=== PATIENT | male | born 1985 | race Two or more races ===

== ENCOUNTER 2017-04-13 23:56 | Emergency (ER) | payer OTHER ==
[~2017-04-13] VITALS: Ht 175.3 cm; Wt 76.2 kg
[2017-04-14 02:21] LABS: MONOTEST NEGATIVE (NEGATIVE)
[2017-04-14 02:46] VITALS: BP 131/76
== END 2017-04-14 02:47 | disposition home or self-care (01) ==
LOC: ER 04-14 00:08
DX: F41.9 Anxiety disorder, unspecified (principal); J45.909 Unspecified asthma, uncomplicated
CPT/HCPCS: 36415; 86308; 93005; 99283; A4606; Z7610

== ENCOUNTER 2021-02-13 13:10 | Emergency (ER) | payer OTHER ==
[~2021-02-13] VITALS: Ht 175.3 cm; Wt 54.4 kg
--- NOTE | 2021-02-13 13:15 | NUR ---
DR. MUNOZ AT FOR EVAL.
[2021-02-13] MEDS ORDERED: ONDANSETRON HCL/PF 4 MG/2 ML VIAL IVP ONE (13:30)
[2021-02-13] MEDS ORDERED: HYDROMORPHONE 1 MG/1 ML DISP.SYRIN IV ONE ×2 (13:30→16:30)
[2021-02-13] MEDS ORDERED: ONDANSETRON HCL/PF 4 MG/2 ML VIAL ONE (13:31)
[2021-02-13] MEDS ORDERED: HYDROMORPHONE 1 MG/1 ML DISP.SYRIN ONE ×2 (13:31→16:09)
[2021-02-13] MEDS ORDERED: IV NS 0.9% 250 ML IV ONE (13:35)
[2021-02-13] MEDS ORDERED: IOHEXOL-350 100 ML VIAL IV ONE (13:35)
--- NOTE | 2021-02-13 13:53 | NUR ---
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 PT AAOX3, RR EVEN & UNLABORED. DENIES CP, DIZZINESS, N/V AT THIS TIME. PLACED ON REFRIGERATION SYSTEM INSTALLER, ST. MEDICATED ORDERED, PT DELMY WELL. WILL CONT TO MONITOR.
[2021-02-13 16:15] VITALS: BP 117/67
--- NOTE | 2021-02-13 16:17 | NUR ---
MEDICATED PER ERMD ORDER, PT DELMY WELL.
--- NOTE | 2021-02-13 16:45 | NUR ---
PT SIGNED AMA FORM. DR. MELENDEZ DISCUSSED RISK TO PT ABOUT LEAVING AMA. PT UNDERSTOOD WITH VERBAL UNDERSTANDING. IV removed. Catheter intact and site benign. Pressure and 4x4 applied to site. No bleeding noted.
== END 2021-02-13 16:48 | disposition left against medical advice (07) ==
LOC: ER 13:19
DX: R06.00 Dyspnea, unspecified (principal); R94.31 Abnormal electrocardiogram [ECG] [EKG]; C95.90 Leukemia, unspecified not having achieved remission; J45.909 Unspecified asthma, uncomplicated
CPT/HCPCS: 93005; 96374; 96375; 96376; 99284; J1170 ×2; J2405; J7050; Q9967

== ENCOUNTER 2021-04-19 00:51 | Inpatient (IN) | payer OTHER ==
[2021-04-19] VITALS (70 sets, daily range): BP systolic 77–126; BP diastolic 33–86
[~2021-04-19] VITALS: Ht 170.2 cm; Wt 45.4 kg
--- NOTE | 2021-04-19 01:02 | NUR ---
YURIY FROM HOME C/O SOB SPO2 80'S-LOW 90'S AT HOME, NOW ON NON REBREATHER 15L SATTING 100%. PT HAS NOT BEEN EATING, BS 50 EMS GIVEN 250ML D10. PATIENT ALERT AND ORIENTED X3. NON AMBULATORY PLACED IN BED 08 ON MONITOR AND POX/
[2021-04-19] MEDS ORDERED: LEVOFLOXACIN 250 MG /D5W 50 ML 0 ML IV ONE (01:18)
[2021-04-19] MEDS ORDERED: LEVOFLOXACIN 750 MG /D5W 150ML 150 ML IV ONE ×2 (01:20→01:30)
[2021-04-19] MEDS ORDERED: IV D5/ 0.9% NACL 1,000 ML IV ONE (01:30)
[2021-04-19] MEDS ORDERED: LIDOCAINE 2% JEL UROJET 10 ML MM ONE (01:37)
[2021-04-19 01:40] LABS: ABG BASE EXCESS -1.5 mmol/L; ABG PCO2 58.4 mmHg (35.0-45.0); ABG PH 7.272 (7.350-7.450); ABG PO2 67.7 mmHg (75.0-100.0); COHb 0.5 % (0.5-1.5); MetHb 0.2 % (0.0-1.5); O2Hb 89.3 % (94.0-97.0); SITE, ABG Left Brachial; VENT MODE, BG NRB 15L
--- NOTE | 2021-04-19 01:49 | NUR ---
[facility]
[2021-04-19] MEDS ORDERED: PROPOFOL 100 ML ONE (01:53)
--- NOTE | 2021-04-19 01:54 | NUR ---
RECIEVED ROOM 254
--- NOTE | 2021-04-19 01:56 | NUR ---
RT Notes Pt orally intubated by Josef ROSALES with 7.0 ETT secured at 23cm at the lip line. Color change on Co2 detector noted. Mist in tube noted. Equal chest rise noted. Pt placed on [facility] vent per MD on ordered settings AC mode, rate 16 , VT 400, 100%, +5. BIOMETRICS INSTRUCTOR done. Alarms set and audible. Ambu bag at bedside. Vent plugged into red outlet. Will obtain ABG 30 minutes after intubation. Will cont to monitor. Addendum: 04/19/21 at 0316 by ONOFRE HARRINGTON RT Amended: Links added.
[2021-04-19] MEDS ORDERED: PROPOFOL 100 ML IV ONE (02:00)
[2021-04-19] MEDS ORDERED: SUCCINYLCHOLINE CHLORIDE 20 MG/ML VIAL IV ONE (02:00)
[2021-04-19] MEDS ORDERED: ETOMIDATE 2 MG/ML VIAL IV ONE ×2 (02:00→08:23)
--- NOTE | 2021-04-19 02:15 | NUR ---
[facility]SA SWAB COLLECTED AND SENT TO LAB. PATIENT'S BELONGINGS LIST DONE.
--- NOTE | 2021-04-19 02:25 | NUR ---
Carlos hawk in [facility] - 04/19/21 at 0229 by [facility] [phone]
--- NOTE | 2021-04-19 02:29 | NUR ---
CASTRO CATHETER PLACED, NO URINE OUTPUT AT THE MOMENT
--- NOTE | 2021-04-19 02:29 | NUR ---
ER WOUND CARE PHYSICIAN @ BEDSIDE
--- NOTE | 2021-04-19 02:39 | NUR ---
COVID SWAB DONE AND SENT TO LAB
--- NOTE | 2021-04-19 02:50 | NUR ---
PT WITH SUB Q DILAUDID DRIP ON A PUMP. THE PUMP IS STOPED AND PT WAS STARTED ON PROPOPHOL DRIP ORDERED.
[2021-04-19 02:52] LABS: BASOPHILS % (AUTO) 0.1 % (0.0-2.0); EOSINOPHILS % (AUTO) 0.3 % (0.0-6.0); HEMATOCRIT 36 % (39-51); HEMOGLOBIN 11.3 g/dL (13.5-17.5); LYMPHOCYTES # (AUTO) 0.3 K/uL (0.8-4.8); LYMPHOCYTES % (AUTO) 2.3 % (20.0-44.0); MEAN CORPUSCULAR HGB CONC 32 g/dl (31.0-36.0); MEAN CORPUSCULAR VOLUME 71 fL (80-96); MONOCYTES # (AUTO) 0.6 K/uL (0.1-1.30); MONOCYTES % (AUTO) 4.2 % (2.0-12.0); NEUTROPHILS # (AUTO) 13.4 K/uL (1.8-8.9); NEUTROPHILS % (AUTO) 93.1 % (43.0-81.0); PLATELET COUNT (AUTO) 175 K/uL (150-450); RED BLOOD CELL COUNT(AUTO) 5.05 MIL/uL (4.5-6.0); WHITE BLOOD COUNT (AUTO) 14.4 K/uL (4.3-11.0)
[2021-04-19] MEDS ORDERED: AZITHROMYCIN 500 MG VIAL ONE (02:53)
[2021-04-19 02:56] LABS: ABG BASE EXCESS -2.5 mmol/L; ABG PCO2 52.4 mmHg (35.0-45.0); ABG PH 7.288 (7.350-7.450); ABG PO2 224.1 mmHg (75.0-100.0); COHb 0.1 % (0.5-1.5); MetHb 0.2 % (0.0-1.5); O2Hb 99.1 % (94.0-97.0); SITE, ABG Left Brachial
[2021-04-19] MEDS ORDERED: AZITHROMYCIN 500 MG in IV D5W 250 ML IV ONE (03:00)
--- NOTE | 2021-04-19 03:01 | NUR ---
Vent setting changed per MD order post ABG result: RR 22 FIo2 80% Addendum: 04/19/21 at 0318 by ONOFRE HARRINGTON RT Amended: Links added.
[2021-04-19 03:29] LABS: ALANINE AMINOTRANSFERASE 276 U/L (12-78); ALBUMIN 1.7 g/dL (3.4-5.0); ALKALINE PHOSPHATASE 376 U/L (46-116); ASPARTATE AMINOTRANSFERASE 328 U/L (15-37); BILIRUBIN,DIRECT 0.5 mg/dL (0.0-0.2); BILIRUBIN,TOTAL 1.1 mg/dL (0.2-1.0); CALCIUM, SERUM 7.2 mg/dL (8.5-10.1); CARBON DIOXIDE 26 mmol/L (21-32); CHLORIDE 100 mmol/L (98-107); CREATININE 1.2 mg/dL (0.6-1.3); GLUCOSE 162 mg/dL (74-106); POTASSIUM 4.7 mmol/L (3.5-5.1); SODIUM SERUM 132 mmol/L (136-145); TOTAL PROTEIN, SERUM 4.2 g/dL (6.4-8.2)
[2021-04-19 03:31] LABS: UREA NITROGEN, BLOOD 100 mg/dL (7-18)
--- NOTE | 2021-04-19 03:33 | NUR ---
CALLED [facility] FOR IMAGING READ
[2021-04-19] MEDS ORDERED: CT SWABBABLE VALVE TRANS SET 1 EA INFUS.SET MC ONE (04:08)
[2021-04-19] MEDS ORDERED: IV NS 0.9% 250 ML IV ONE (04:08)
[2021-04-19] MEDS ORDERED: IOHEXOL-350 100 ML VIAL IV ONE (04:08)
--- NOTE | 2021-04-19 04:19 | NUR ---
PATIENT WENT TO CT WITH RT AND RN AT BEDSIDE
--- NOTE | 2021-04-19 04:31 | NUR ---
REPORT GIVEN TO HÉCTOR JACINTO
[2021-04-19] MEDS ORDERED: METH10TA2 PO (04:42)
[2021-04-19] MEDS ORDERED: PREG150C93 PO (04:44)
[2021-04-19] MEDS ORDERED: ESCI10TA PO (04:44)
[2021-04-19] MEDS ORDERED: Z GUARD REMEDY 4 OZ OINT TP PRN (05:00)
[2021-04-19] MEDS ORDERED: ACETAMINOPHEN 650 MG/SUPP.RECT RC PRN (05:00)
[2021-04-19] MEDS ORDERED: HYDROCODONE/APAP 5/325MG TABLET GT PRN (05:00)
[2021-04-19] MEDS ORDERED: MORPHINE SULFATE INJ 2 MG/ML DISP.SYRIN IV PRN (05:00)
[2021-04-19] MEDS ORDERED: ONDANSETRON HCL/PF 4 MG/2 ML VIAL IVP PRN (05:00)
[2021-04-19] MEDS ORDERED: IV NS 0.9% 1,000 ML IV PRN ×2 (05:00→10:18)
[2021-04-19 05:18] LABS: ABG BASE EXCESS -1.1 mmol/L; ABG PCO2 36.6 mmHg (35.0-45.0); ABG PH 7.418 (7.350-7.450); ABG PO2 56.4 mmHg (75.0-100.0); COHb 0.3 % (0.5-1.5); MetHb 0.4 % (0.0-1.5); O2Hb 88.6 % (94.0-97.0); SITE, ABG Left Brachial
--- NOTE | 2021-04-19 05:20 | NUR ---
FIO2 increase to 100% per MD Josef order post ABG results Addendum: 04/19/21 at 0550 by ONOFRE HARRINGTON RT Amended: Links added.
[2021-04-19] MEDS ORDERED: ALBUTEROL FS 2.5 MG/3 ML VIAL.NEB NEB PRN (05:30)
--- NOTE | 2021-04-19 05:37 | NUR ---
TRANSFERRED TO ICU UNDER ACLS
--- NOTE | 2021-04-19 05:40 | NUR ---
NAILING MACHINE OPERATOR AUTOMATIC NOTES PT ADMITTED FROM ER, DX IS ACUTE HYPOXIC RESPIRATORY FAILURE, WITH HISTORY OF ASTHMA AND VASCULAR CANCER STAGE 4 . NO KNOWN ALLERGIES. SEDATED. PT ON ETT- 7.5, MECHANICAL VENTILATION WITH SETTINGS AC-22, TV-400, FIO2-100%, PEEP-5. PT HAS NG TUBE INSERTED TO LEFT NARES AND CASTRO CATH. IV ACCESS AT LAC #20, LEFT WRIST #22, RIGHT FOREARM #18, PATENT INTACT FLUSHED WITH NS. RUNNING WITH PROPOFOL @ 15 MCG/KG/MIN. AND NS 1L @ 125 ML/HR. ACCUCHECK Q6H. ALL SAFETY MEASURES IN PLACE, BED IN LOWEST LOCKED POSITION, CALL LIGHT WITHIN REACH.
--- NOTE | 2021-04-19 05:51 | NUR ---
patient transferred to icu per acls with rt rn and emt.
[2021-04-19] MEDS: PROPOFOL 100 ML IV PRN ×2 (06:02→15:51)
[2021-04-19] MEDS: BLOOD SUGAR DIAGNOSTIC 1 EACH STRIP IN SCH ×3 (06:33→18:26)
[2021-04-19 06:58] LABS: IRON, SERUM 88 ug/dl (50-175); TOTAL IRON BINDING CAPACITY 347 ug/dl (250-450)
[2021-04-19] MEDS: NOREPINEPHRINE 8 MG in IV NS 0.9% 242 ML IV PRN ×2 (07:33→18:45)
--- NOTE | 2021-04-19 07:40 | NUR ---
ICU/RN PT IS INTUBATED ON THE VENT AC MODE,FIO2-100%,PEEP-5,SAT O2-100%.BP LOW LEVOPHED STARTED.SEDATED WITH DIPRIVAN IV INFUSING ORDERED.LEFT NG TUBE CLAMPED.F/C IN PLACE DRAINING WITH YELLOW URINE.ABDOMEN DISTENDED.BOWEL SOUNDS PRESENT.LABS REVIEW. NOTIFIED.
[2021-04-19] MEDS: PANTOPRAZOLE 40 MG VIAL IV SCH (08:25)
[2021-04-19] MEDS: ENOXAPARIN SODIUM 40 MG/0.4 ML DISP.SYRIN SQ SCH (08:26)
[2021-04-19] MEDS: CEFEPIME 2 GM in IV D5W 100 ML IV SCH ×2 (08:36→20:15)
[2021-04-19] MEDS ORDERED: CEFEPIME 1 GM in IV D5W 50 ML IV SCH (09:00)
--- NOTE | 2021-04-19 09:00 | NUR ---
ICU/RN DUE MEDS ARE GIVEN ORDERED.ABG DONE.PEEP INCREASED TO 10.
--- NOTE | 2021-04-19 09:09 | NUR ---
WOUND CARE CONSULT: REVIEWED CHART, NURSING DOCUMENTATION AND PHOTO WHICH INDICATES CACHEXIA AND SACRAL DEEP TISSUE INJURY, PRESENT ON ADMISSION. RECOMMENDATIONS MADE FOR SKIN PROTECTION. DISCUSSED WITH NURSING STAFF. PT IS ON FULSHEAR ISOFLEX LOW AIRLOSS BED. MD IN AGREEMENT WITH PLAN OF CARE. DIETARY CONSULT IN PLACE.
--- NOTE | 2021-04-19 11:00 | NUR ---
ICU/RN RIGHT PICC LINE INSERTED.SMALL BLEEDING ON THE DRESSING SIDE NOTED.
--- NOTE | 2021-04-19 11:34 | NUR ---
ICU/RN PT C/O OF PAIN MORPHINE IV GIVEN ORDERED. DIPRIVAN INCREASED.
[2021-04-19] MEDS: INSULIN REGULAR, HUMAN 100 UNIT/ML 3 ML VIAL SQ PRN (11:46)
[2021-04-19 15:05] LABS: THYROID STIMULATING HORMONE 16.245 uIU/mL (0.358-3.74)
[2021-04-19 16:35] LABS: BAND % (MANUAL) 6 % (0.0-5.0); LYMPHOCYTES % (MANUAL) 7 % (16-48); METAMYELOCYTES % 1 % (0-0); MONOCYTES % (MANUAL) 7 % (0-11.0); NEUTROPHILS % (MANUAL) 78 (42-76); REACTIVE LYMPHOCYTES 1 % (0-0)
--- NOTE | 2021-04-19 17:00 | NUR ---
ICU/RN DUE MEDS ARE GIVEN ORDERED.PM CARE PROVIDED.WOUND DRESSING DONE ORDERED.PT IS SEDATED WITH DIPRIVAN.ON LEVOPHED DRIP AND IV FLUIDS.REPOSITION FOR COMFORT.
--- NOTE | 2021-04-19 18:05 | NUR ---
ICU/RN BS-51. D50% IV GIVEN ORDERED.CONTINUE MONITORING.FAMILY AT BEDSIDE.
[2021-04-19] MEDS: DEXTROSE 50%-WATER 50 ML DISP.SYRIN IV PRN (18:26)
--- NOTE | 2021-04-19 19:10 | NUR ---
RECEIVED PT ON BED ORALLY INTUBATED , SETTING PER MD, FIO2 60% PEEP 10, SPO2 97% TELE MONITOR READS SINUS RHYTHM 60'S PT HAVE KIMBERLY PICC WITH ONGOING LEVOPHED @ 0.3 MCG/KG/MIN WILL TITRATE PER PROTOCOL,PROPOFOL@ 30 MCG/KG/MIN, AND NS @75ML/HR HAVE RHAND#18 PATENT AND FLUSHED HAVE CASTRO IN PLACE WITH YELLOW URINE DRAINING VIA GRAVITY VERY LOW URINE OUTPUT,LNGTUBE ON PLACED CLAMPED BED ON LOWEST POSITION AND LOCKED SIDERAILS UP X 2 WILL CONT TO MONITOR
[2021-04-19] MEDS ORDERED: HYDROMORPHONE 1 MG/1 ML DISP.SYRIN IV PRN (20:00)
[2021-04-19] MEDS ORDERED: DOXYCYCLINE 100 MG VIAL ONE (22:27)
[2021-04-19] MEDS: DOXYCYCLINE 100 MG in IV D5W 100 ML IV SCH (22:36)
[2021-04-20] VITALS (96 sets, daily range): BP systolic 57–137; BP diastolic 34–91
[2021-04-20] MEDS: INSULIN REGULAR, HUMAN 100 UNIT/ML 3 ML VIAL SQ PRN ×2 (00:01→05:42)
[2021-04-20 01:38] LABS: BILIRUBIN,URINE NEGATIVE (NEGATIVE); COLOR,URINE YELLOW (YELLOW); LEUKOCYTE ESTERASE ,URINE NEGATIVE (NEGATIVE); NITRITE, URINE NEGATIVE (NEGATIVE); PROTEIN,URINE NEGATIVE (NEGATIVE); UGLUCOSE NEGATIVE (NEGATIVE); UROBILINOGEN,URINE 0.2 EU/dL (0.2)
[2021-04-20] MEDS: POLYVINYL ALCOHOL 15 ML BOTTLE EACHEYE PRN ×2 (01:50→20:38)
[2021-04-20] MEDS: PROPOFOL 100 ML IV PRN ×2 (02:04→14:57)
[2021-04-20 02:47] LABS: RBC,URINE 21-50 /HPF (0-2)
[2021-04-20 02:48] LABS: BACTERIA,URINE Few /HPF (None Seen); SQUAMOUS EPITHELIAL CELL,UR Few /HPF (None Seen)
[2021-04-20] MEDS: NOREPINEPHRINE 8 MG in IV NS 0.9% 242 ML IV PRN ×3 (04:05→19:30)
[2021-04-20 04:26] LABS: BASOPHILS % (AUTO) 0.1 % (0.0-2.0); EOSINOPHILS % (AUTO) 0.1 % (0.0-6.0); HEMATOCRIT 38 % (39-51); HEMOGLOBIN 12.1 g/dL (13.5-17.5); LYMPHOCYTES # (AUTO) 0.3 K/uL (0.8-4.8); LYMPHOCYTES % (AUTO) 1.7 % (20.0-44.0); MEAN CORPUSCULAR HGB CONC 32 g/dl (31.0-36.0); MEAN CORPUSCULAR VOLUME 71 fL (80-96); MONOCYTES # (AUTO) 0.6 K/uL (0.1-1.30); MONOCYTES % (AUTO) 3.1 % (2.0-12.0); NEUTROPHILS # (AUTO) 18.4 K/uL (1.8-8.9); PLATELET COUNT (AUTO) 136 K/uL (150-450); RED BLOOD CELL COUNT(AUTO) 5.38 MIL/uL (4.5-6.0); WHITE BLOOD COUNT (AUTO) 19.3 K/uL (4.3-11.0)
[2021-04-20 04:38] LABS: CREATININE 1.7 mg/dL (0.6-1.3); MAGNESIUM 2.2 mg/dL (1.8-2.4); PHOSPHORUS 5.6 mg/dL (2.5-4.9); POTASSIUM 4.4 mmol/L (3.5-5.1)
--- NOTE | 2021-04-20 05:32 | NUR ---
REPORTED TO HOSPITALIST ONCKIM JANG THAT PT BLOOD SUGAR IS 35, AND I GIVE THE D50 AMP IV PER PROTOCOL, SHE MADE ANOTHER ORDER TO CHANGE THE IVF TO D5W @ 75ML/HR NOTED AND CARRIED OUT
[2021-04-20] MEDS: DEXTROSE 50%-WATER 50 ML DISP.SYRIN IV PRN (05:41)
[2021-04-20] MEDS: BLOOD SUGAR DIAGNOSTIC 1 EACH STRIP IN SCH ×4 (05:41→18:19)
[2021-04-20 05:42] LABS: BAND % (MANUAL) 8 % (0.0-5.0); LYMPHOCYTES % (MANUAL) 2 % (16-48); MONOCYTES % (MANUAL) 2 % (0-11.0); NEUTROPHILS % (MANUAL) 88 (42-76)
[2021-04-20] MEDS: IV D5W 1,000 ML IV PRN ×2 (06:13→19:16)
--- NOTE | 2021-04-20 06:22 | NUR ---
BLOOD SUGAR RECHECKED 119
--- NOTE | 2021-04-20 07:30 | NUR ---
RN NOTES PT FOUND SEMI FOWLERS DISPLAYING NO S/S OF DISTRESS, FLACC = 0, RIKERS = 3, BILATERAL RISE AND FALL THE CHEST OBSERVED. R UA PICC IS PATIENT AND INTACT. CASTRO CATH IS BELOW PATIENT DRAINING BY GRAVITY. S1S2 NOTED. VSS, RN WILL MONITOR AND TREAT THROUGHOUT SHIFT. SAFETY MEASURES IN PLACE, BED LOCKED AND IN LOWEST POSITION, SIDE RAILS UPX2, CALL LIGHT WITHIN REACH, BED ALARM ARMED.
[2021-04-20 08:49] LABS: ABG BASE EXCESS -6.5 mmol/L; ABG OXYGEN SATURATION 98.7 % (92.0-98.5); ABG PCO2 34.1 mmHg (35.0-45.0); ABG PH 7.346 (7.350-7.450); ABG PO2 144.1 mmHg (75.0-100.0); AaDO2 246.2 mmHg; COHb 0.6 % (0.5-1.5); MetHb 0.2 % (0.0-1.5); O2Hb 97.9 % (94.0-97.0); PEEP,BG 10 cm H2O; SITE, ABG Left Radial; VENT MODE, BG AC 22 400 60% +10; VT, ABG 400 mL
[2021-04-20] MEDS: CEFEPIME 2 GM in IV D5W 100 ML IV SCH ×2 (09:19→20:02)
[2021-04-20] MEDS: PANTOPRAZOLE 40 MG VIAL IV SCH (09:19)
[2021-04-20] MEDS: DOXYCYCLINE 100 MG in IV D5W 100 ML IV SCH ×2 (09:19→20:48)
[2021-04-20] MEDS: ENOXAPARIN SODIUM 40 MG/0.4 ML DISP.SYRIN SQ SCH (09:20)
--- NOTE | 2021-04-20 12:00 | NUR ---
RN NOTE PT TEMP IS 94.7 F, RN PLACED ELIJAH HUGGER BLANKET ON PT.
[2021-04-20 13:10] LABS: D-DIMER 1.18 mg/L(FEU (0.17-0.50)
--- NOTE | 2021-04-20 19:05 | NUR ---
RECEIVED PT ON BED ORALLY INTUBATED , SETTING PER MD, FIO2 60% PEEP 5, SPO2 97% TELE MONITOR READS SINUS TACHY 100'S PT HAVE KIMBERLY PICC WITH ONGOING LEVOPHED @ 0.4 MCG/KG/MIN WILL TITRATE PER PROTOCOL,PROPOFOL@ 30 MCG/KG/MIN, AND D5W @75ML/HR HAVE RHAND#18 PATENT AND FLUSHED HAVE CASTRO IN PLACE WNO URINE OUTPUT THIS TIME ,LNGTUBE ON PLACED CLAMPED BED ON LOWEST POSITION AND LOCKED SIDERAILS UP X 2 WILL CONT TO MONITOR
--- NOTE | 2021-04-20 19:10 | NUR ---
RN NOTES PT FOUND SEMI FOWLERS DISPLAYING NO S/S OF DISTRESS, FLACC = 0, RIKERS = 3, BILATERAL RISE AND FALL THE CHEST OBSERVED. R UA PICC IS PATIENT AND INTACT. CASTRO CATH IS BELOW PATIENT DRAINING BY GRAVITY. S1S2 NOTED. SBAR AND REPORT GIVEN TO COMPUTER NETWORKING INSTRUCTOR RN, ALL QUESTIONS ANSWERED. SAFETY MEASURES IN PLACE, BED LOCKED AND IN LOWEST POSITION, SIDE RAILS UPX2, CALL LIGHT WITHIN REACH, BED ALARM ARMED. PT ENDORSED TO COMPUTER NETWORKING INSTRUCTOR FOR TIERRA.
[2021-04-21] VITALS (86 sets, daily range): BP systolic 78–129; BP diastolic 50–76
[2021-04-21] MEDS: BLOOD SUGAR DIAGNOSTIC 1 EACH STRIP IN SCH ×5 (00:02→23:16)
[2021-04-21] MEDS: INSULIN REGULAR, HUMAN 100 UNIT/ML 3 ML VIAL SQ PRN ×3 (00:03→23:18)
[2021-04-21] MEDS: PROPOFOL 100 ML IV PRN ×2 (01:48→12:31)
[2021-04-21] MEDS: NOREPINEPHRINE 8 MG in IV NS 0.9% 242 ML IV PRN ×5 (01:48→22:31)
[2021-04-21 04:22] LABS: BASOPHILS % (AUTO) 0.1 % (0.0-2.0); EOSINOPHILS % (AUTO) 0.1 % (0.0-6.0); HEMATOCRIT 38 % (39-51); HEMOGLOBIN 11.9 g/dL (13.5-17.5); LYMPHOCYTES # (AUTO) 0.3 K/uL (0.8-4.8); LYMPHOCYTES % (AUTO) 1.7 % (20.0-44.0); MEAN CORPUSCULAR HGB CONC 32 g/dl (31.0-36.0); MEAN CORPUSCULAR VOLUME 71 fL (80-96); MONOCYTES # (AUTO) 0.8 K/uL (0.1-1.30); MONOCYTES % (AUTO) 4.7 % (2.0-12.0); NEUTROPHILS # (AUTO) 15.3 K/uL (1.8-8.9); NEUTROPHILS % (AUTO) 93.4 % (43.0-81.0); PLATELET COUNT (AUTO) 100 K/uL (150-450); RED BLOOD CELL COUNT(AUTO) 5.29 MIL/uL (4.5-6.0); WHITE BLOOD COUNT (AUTO) 16.4 K/uL (4.3-11.0)
[2021-04-21 05:16] LABS: CALCIUM, SERUM 6.7 mg/dL (8.5-10.1); CREATININE 2.5 mg/dL (0.6-1.3); MAGNESIUM 2.2 mg/dL (1.8-2.4); PHOSPHORUS 6.5 mg/dL (2.5-4.9); POTASSIUM 5.6 mmol/L (3.5-5.1); TOTAL PROTEIN, SERUM 4.5 g/dL (6.4-8.2)
[2021-04-21 05:27] LABS: ALBUMIN 1.5 g/dL (3.4-5.0)
--- NOTE | 2021-04-21 06:40 | NUR ---
PT ON BED STILL ORALL INTUBATED VENT SETTING PER MD FIO2 40% PEEP 5 SPO2 96% NO SIGN OF DISTRESS NOTED, TELE MONITOR READ SINUS RHYTHM 90'S, STILL ON PROPOFOL @ 30 MCG/KG/MIN, LEVOPHED @ 0.6 MCG/KG/MIN, AND D5W @ 75ML/HR INFUSING VIA KIMBERLY PICC, NO SIGNIFICANT CHANGES ON CONDITION NOTED ALL NEEDS ATTENDED BED ON LOWEST POSITION AND LOCKED SIDE RAILS UP X2 WILL CONT TO MONITOR
[2021-04-21] MEDS: CEFEPIME 2 GM in IV D5W 100 ML IV SCH ×2 (08:16→20:32)
[2021-04-21] MEDS: PANTOPRAZOLE 40 MG VIAL IV SCH (08:16)
[2021-04-21] MEDS: DOXYCYCLINE 100 MG in IV D5W 100 ML IV SCH ×2 (08:16→21:19)
[2021-04-21] MEDS: ENOXAPARIN SODIUM 40 MG/0.4 ML DISP.SYRIN SQ SCH (08:17)
[2021-04-21] MEDS: POLYVINYL ALCOHOL 15 ML BOTTLE EACHEYE PRN (08:35)
[2021-04-21] MEDS: IV D5W 1,000 ML IV PRN (12:30)
[2021-04-21 16:36] LABS: LYMPHOCYTES % (MANUAL) 4 % (16-48); METAMYELOCYTES % 1 % (0-0); MONOCYTES % (MANUAL) 7 % (0-11.0); NEUTROPHILS % (MANUAL) 88 (42-76)
--- NOTE | 2021-04-21 19:14 | NUR ---
RN NOTES PT FOUND SEMI FOWLERS DISPLAYING NO S/S OF DISTRESS, FLACC = 0, RIKERS = 3, BILATERAL RISE AND FALL THE CHEST OBSERVED. R UA PICC IS PATIENT AND INTACT. CASTRO CATH IS BELOW PATIENT DRAINING BY GRAVITY. S1S2 NOTED. SBAR AND REPORT GIVEN TO CHINCHILLA FARMER RN, ALL QUESTIONS ANSWERED. SAFETY MEASURES IN PLACE, BED LOCKED AND IN LOWEST POSITION, SIDE RAILS UPX2, CALL LIGHT WITHIN REACH, BED ALARM ARMED. PT ENDORSED FOR TIERRA.
--- NOTE | 2021-04-21 19:34 | NUR ---
RN NOTE RECEIVED PT ORALLY INTUBATED AC 22 TV 400 FIO2 40% P 5. O2 SAT AT 97%, NO S/SX OF RESP DISTRESS WERE NOTED. PT ON LEVOPHED AT 0.5MCG/KG/MIN AND DIPRIVAN AT 25 MCG/KG/MIN, INFUSING WELL ON KIMBERLY PICC. NO SIGNS OF INFILTRATION WERE NOTED. PT WITH CASTRO CATH IN PLACE WITH ABOUT 10ML URINE OUTPUT. NG TUBE IN PLACE, PATENT. PT ON NPO. WILL CONTINUE TO MONITOR. ALL SAFETY MEASURES IN PLACE.
--- NOTE | 2021-04-21 20:04 | NUR ---
RN NOTE PT FAMILY AT BEDSIDE. ALL QUESTIONS WERE ANSWERED. PT MOM, KENNY THE PRIMARY DECISION MAKER, CONFIRMED BY PTS CRISTINA.
[2021-04-22] VITALS (22 sets, daily range): BP systolic 54–120; BP diastolic 24–63
[2021-04-22] MEDS: PROPOFOL 100 ML IV PRN (01:18)
--- NOTE | 2021-04-22 04:00 | NUR ---
RN NOTE PT BLOOD PRESSURE WERE DROPPING, TITRATED PRESSOR PER PROTOCOL. CHARGE NURSE SPOKE TO PT MOM, KENNY.
[2021-04-22] MEDS: NOREPINEPHRINE 8 MG in IV NS 0.9% 242 ML IV PRN (04:02)
--- NOTE | 2021-04-22 04:05 | NUR ---
RN NOTE PER CHARGE NURSE, PT MOTHER VERBALIZES TO KEEP PT COMFORTABLE, TO MAKE PT DNR STATUS. "TO LET HIM GO COMFORTABLY" AND TO NOTIFY THEM WHEN PT . PIPE LAYER DISPATCH OFFICER ELSA JANG MADE AWARE. CHANGED STATUS TO DNR
[2021-04-22 04:09] LABS: BASOPHILS % (AUTO) 0.1 % (0.0-2.0); EOSINOPHILS % (AUTO) 0.1 % (0.0-6.0); HEMATOCRIT 38 % (39-51); HEMOGLOBIN 11.9 g/dL (13.5-17.5); LYMPHOCYTES # (AUTO) 0.4 K/uL (0.8-4.8); LYMPHOCYTES % (AUTO) 2.4 % (20.0-44.0); MEAN CORPUSCULAR HGB CONC 31 g/dl (31.0-36.0); MEAN CORPUSCULAR VOLUME 72 fL (80-96); MONOCYTES # (AUTO) 0.9 K/uL (0.1-1.30); MONOCYTES % (AUTO) 5.1 % (2.0-12.0); NEUTROPHILS % (AUTO) 92.3 % (43.0-81.0); PLATELET COUNT (AUTO) 78 K/uL (150-450); RED BLOOD CELL COUNT(AUTO) 5.35 MIL/uL (4.5-6.0); WHITE BLOOD COUNT (AUTO) 18.4 K/uL (4.3-11.0)
[2021-04-22 04:31] LABS: BILIRUBIN,TOTAL 1.3 mg/dL (0.2-1.0); CALCIUM, SERUM 6.4 mg/dL (8.5-10.1); CREATININE 3.3 mg/dL (0.6-1.3); MAGNESIUM 2.3 mg/dL (1.8-2.4); TOTAL PROTEIN, SERUM 4.1 g/dL (6.4-8.2)
--- NOTE | 2021-04-22 04:45 | NUR ---
WAS ADVISED BY TENNIS PLAYER RIC TO NOT PERFORM XRAY EXAM ON PATIENT AT THIS TIME 0400 HRS
[2021-04-22 05:01] LABS: PHOSPHORUS 8.9 mg/dL (2.5-4.9)
[2021-04-22 05:02] LABS: ALBUMIN 1.3 g/dL (3.4-5.0)
[2021-04-22 05:11] LABS: LYMPHOCYTES % (MANUAL) 3 % (16-48); MONOCYTES % (MANUAL) 6 % (0-11.0); NEUTROPHILS % (MANUAL) 91 (42-76)
--- NOTE | 2021-04-22 05:15 | NUR ---
RN NOTE PT DETERIORATING FAST, HEMODYNAMICALLY UNSTABLE, MAX ON LEVOPHED AT 1MCG/KG/MIN. PT WITH CRITICAL LAB RESULTS K 7.0 BUN 153 PHOS 8.9 ALBUMIN 1.3. REPORTED TO FENCE BUILDER GANG PLANK WORKMAN SUHAIL, WITH NEW ORDERS TO START NEOSYNEPHRINE DRIP, D50 1 AMP IVP AND REGULAR INSULIN 10 UNITS SUBQ.
[2021-04-22] MEDS ORDERED: PHENYLEPHRINE 50 MG in IV NS 0.9% 245 ML IV PRN (05:30)
[2021-04-22] MEDS ORDERED: INSULIN REGULAR, HUMAN 100 UNIT/ML 3 ML VIAL SQ ONE (05:30)
[2021-04-22] MEDS ORDERED: DEXTROSE 50%-WATER 50 ML DISP.SYRIN IVP ONE (05:30)
--- NOTE | 2021-04-22 05:55 | NUR ---
ICU NOTES I WAS CALLED TO EVALUATE PATIENT.NOTED PATIENT STOP BREATHING ASYSTOLE PER CONTENT CURATOR X3 LEADS.NO AUDIBLE HEART RATE PER AUSCULTATION.PULSES NOT PALPABLE OR BY DOPPLER.UNRESPONSIVE TO NOXIOUS STIMULI.PUPILS FIXED AND DILATED.ALL OF THE ABOVE SIGNS NOT COMPATIBLE FOR LIFE.PRONOUNCED .
--- NOTE | 2021-04-22 06:00 | NUR ---
RN NOTE NOTIFIED PT MOTHER, KENNY, PT . FAMILY WANTS TO COME AND SEE PT. POST MORTEM DONE. CALLED [facility], REFERRAL ID [id number].
--- NOTE | 2021-04-22 06:50 | NUR ---
RN MILTON RECEIVED A CALL BACK FROM YANI FROM [facility] WITH REFERRAL ID [id number].
[2021-04-22] MEDS ORDERED: NOREPINEPHRINE 32 MG in IV NS 0.9% 218 ML IV PRN (07:00)
== END 2021-04-22 08:53 | DRG 871 ==
LOC: ER 00:53 → ICU 02:31
PROVIDERS: ADMIT Nurse Practitioner Acute Care
PROC: 5A1945Z Respiratory Ventilation, 24-96 Consecutive Hours (ICD-10-PCS; principal; 2021-04-19)
PROC: 0BH17EZ Insertion of Endotracheal Airway into Trachea, Via Natural or Artificial Opening (ICD-10-PCS; 2021-04-19)
PROC: 02HV33Z Insertion of Infusion Device into Superior Vena Cava, Percutaneous Approach (ICD-10-PCS; 2021-04-19)
PROC: B548ZZA Ultrasonography of Superior Vena Cava, Guidance (ICD-10-PCS; 2021-04-19)
DX: A41.9 Sepsis, unspecified organism (principal); E43 Unspecified severe protein-calorie malnutrition; J96.01 Acute respiratory failure with hypoxia; N17.0 Acute kidney failure with tubular necrosis; R65.21 Severe sepsis with septic shock; J69.0 Pneumonitis due to inhalation of food and vomit; E87.1 Hypo-osmolality and hyponatremia; R64 Cachexia; J90 Pleural effusion, not elsewhere classified; C79.89 Secondary malignant neoplasm of other specified sites; Z68.1 Body mass index [BMI] 19.9 or less, adult; D50.9 Iron deficiency anemia, unspecified; E88.09 Other disorders of plasma-protein metabolism, not elsewhere classified; E86.0 Dehydration; J45.909 Unspecified asthma, uncomplicated; Z20.822 Contact with and (suspected) exposure to COVID-19; Z66 Do not resuscitate; C80.1 Malignant (primary) neoplasm, unspecified; E87.5 Hyperkalemia; E86.1 Hypovolemia; F32.A Depression, unspecified; Z92.21 Personal history of antineoplastic chemotherapy
CPT/HCPCS: 31720; 36415; 36569; 36600; 71045-TC; 80048-TC; 80053-TC; 80076-TC; 81001; 82550-TC; 82728-TC; 82803-TC; 82962-TC; 83540-TC; 83605-TC; 83735-TC; 83880; 84100-TC; 84439-TC; 84443-TC; 84484-TC; 85025-TC; 85378-TC; 85396; 85730-TC; 87040-TC; 87081-TC; 87086-TC; 93307-TC; 94002-TC; 94003-TC; 94760-TC; 94762-TC; 94799-TC; 99082-TC; C9113; G0378; J0456; J0692; J1650; J1815; J1956; J2270; J2370; J3490; J7030; J7050; J7060; J7070; Q9967; U0003